=== PATIENT | female | born 1995 | race Hispanic/Latino ===

== ENCOUNTER 2017-12-19 05:27 | Emergency (ER) | payer SELFPAY ==
[~2017-12-19] VITALS: Ht 157.5 cm; Wt 57.4 kg
[~2017-12-19 05:27] MED LIST: CEPHALEXIN500 MG PO; IBUPROFEN600 MG PO; PRENATAL1 TA1
[2017-12-19 06:30] LABS: HEMATOCRIT 45.1 % (37.0-47.0); HEMOGLOBIN 14.7 g/dl (12.0-16.0); IMMATURE GRANULOCYTES 0.3 % (0.0-1.0); MEAN CELL VOLUME 89.8 fL CALC (80.0-100.0); MEAN CORPUSCULAR HGB 29.3 pG CALC (26.0-32.0); MEAN CORPUSCULAR HGB CONC 32.6 g/L CALC (32.0-36.0); NEUT# 5.17 thou/uL (2.00-7.15); RED BLOOD COUNT 5.02 mill/uL (4.20-5.60); RED CELL DISTRI WIDTH 12.7 % (11.5-15.5); URINE BILIRUBIN - DIPSTICK NEGATIVE (NEGATIVE); URINE BLOOD DIPSTICK NEGATIVE (NEGATIVE); URINE COLOR YELLOW; URINE GLUCOSE - DIPSTICK NEGATIVE (NEGATIVE); URINE KETONE NEGATIVE (NEGATIVE); URINE NITRITE - DIPSTICK NEGATIVE (Negative); URINE PH 7.5 (4.5-8.0); URINE PROTEIN - DIPSTICK NEGATIVE (NEG-TRACE); URINE UROBILINOGEN - DIPSTICK 0.2 E.U./dL (0.2)
[2017-12-19 06:34] LABS: URINE CLARITY SL CLOUDY; URINE LEUK ESTERASE SMALL (NEGATIVE)
[2017-12-19 06:45] LABS: ALKALINE PHOSPHATASE 105 u/l (38-126); BILIRUBIN, TOTAL 0.6 mg/dL (0.0-1.4); BUN 13 mg/dL (7-17); BUN/CREATININE RATIO 23 (12-20 (CALC)); CARBON DIOXIDE 25 mmol/l (22-30); CHLORIDE 101 mmol/l (95-108); CREATININE 0.6 mg/dL (0.5-1.0); GFR > 60 ML/MIN (>=60 (CALC)); GFR FOR AFR.AMER. > 60 ML/MIN (>=60 (CALC)); POTASSIUM 4.8 mmol/l (3.5-5.1); SGOT/AST 21 u/l (14-36); SGPT/ALT 33 u/l (9-52)
[2017-12-19 06:49] LABS: URINE BACTERIA MODERATE hpf; URINE MUCUS FEW hpf (NONE-FEW); URINE SQUAMOUS EPITHELIAL CELL FEW EPI/hpf (0-FEW)
[2017-12-19 06:52] LABS: ANION GAP 22 (6-22 (CALC)); SODIUM 143 mmol/l (137-146); TOTAL PROTEIN 8.8 g/dL (6.3-8.2)
[2017-12-19 06:53] LABS: ALBUMIN 5.1 g/dL (3.2-5.0)
[2017-12-19 07:17] LABS: TSH, 3RD GENERATION 0.67 uIU/mL (0.47 - 4.68)
[2017-12-19] MEDS ORDERED: BACTRIM DS1 TAB PO (08:12)
[2017-12-19] MEDS ORDERED: TORADOL PO (08:12)
[2017-12-19 09:00] VITALS: BP 120/68
== END 2017-12-19 09:10 | disposition home or self-care (01) | DRG 103 ==
LOC: ED 05:27
PROVIDERS: Family Medicine
DX: R51 Headache (principal); N39.0 Urinary tract infection, site not specified

== ENCOUNTER 2021-01-11 12:33 | Emergency (ER) | payer OTHER ==
[~2021-01-11] VITALS: Ht 157.5 cm; Wt 55.0 kg
[~2021-01-11 12:33] MED LIST changes: +BACTRIM DS1 TAB PO; +TORADOL PO
[2021-01-11] MEDS ORDERED: BIRTH CONTROL (12:55)
[2021-01-11 13:30] LABS: HEMOGLOBIN 14.2 g/dl (12.0-16.0); IMMATURE GRANULOCYTES 0.1 % (0.0-5.0); MEAN CELL VOLUME 91.9 fL CALC (80.0-100.0); MEAN CORPUSCULAR HGB 31.1 pG CALC (26.0-32.0); MEAN CORPUSCULAR HGB CONC 33.8 g/dL CAL (32.0-36.0); NEUT# 4.67 thou/uL (2.00-7.15); RED BLOOD COUNT 4.57 mill/uL (4.20-5.60); RED CELL DISTRI WIDTH 11.8 % (11.5-15.5)
[2021-01-11 13:53] LABS: ANION GAP 15 (6-22 (CALC)); BUN 11 mg/dL (7-17); BUN/CREATININE RATIO 19 (12-20 (CALC)); CARBON DIOXIDE 24 mmol/l (22-30); CHLORIDE 103 mmol/l (95-108); CREATININE 0.6 mg/dL (0.5-1.0); GFR > 60 ML/MIN (>=60 (CALC)); GFR FOR AFR.AMER. > 60 ML/MIN (>=60 (CALC)); POTASSIUM 3.8 mmol/l (3.5-5.1); SGOT/AST 26 u/l (14-36); SODIUM 138 mmol/l (137-146)
[2021-01-11 13:54] LABS: ALBUMIN 4.7 g/dL (3.2-5.0); ALKALINE PHOSPHATASE 60 u/l (38-126); BILIRUBIN, TOTAL 0.5 mg/dL (0.0-1.4); TOTAL PROTEIN 8.3 g/dL (6.3-8.2)
[2021-01-11 15:31] VITALS: BP 116/61
== END 2021-01-11 15:39 | disposition home or self-care (01) ==
LOC: ED 12:33
PROVIDERS: Family Medicine
DX: G43.909 Migraine, unspecified, not intractable, without status migrainosus (principal)

== ENCOUNTER 2022-08-08 20:43 | Emergency (ER) | payer OTHER ==
[~2022-08-08] VITALS: Ht 160 cm; Wt 67.6 kg
[~2022-08-08 20:43] MED LIST changes: +BIRTH CONTROL
[2022-08-08] MEDS ORDERED: AMOXICILLIN500 MG PO (23:08)
[2022-08-08] MEDS ORDERED: CLARITIN10 M2 PO (23:08)
[2022-08-08 23:33] VITALS: BP 120/78
== END 2022-08-08 23:33 | disposition home or self-care (01) ==
LOC: ED 20:43
DX: J02.9 Acute pharyngitis, unspecified (principal); Z20.822 Contact with and (suspected) exposure to COVID-19

== ENCOUNTER 2023-01-19 13:14 | Emergency (ER) | payer SELFPAY ==
[~2023-01-19] VITALS: Ht 160 cm; Wt 63.5 kg
[~2023-01-19 13:14] MED LIST changes: +AMOXICILLIN500 MG PO; +CLARITIN10 M2 PO
[2023-01-19 13:20] VITALS: BP 137/92
[2023-01-19 13:30] VITALS: BP 127/82
[2023-01-19 14:00] VITALS: BP 118/82
[2023-01-19] MEDS ORDERED: FLOXIN OTIC0.3 % OT (14:17)
[2023-01-19 14:23] VITALS: BP 118/82
== END 2023-01-19 14:28 | disposition home or self-care (01) | DRG 156 ==
LOC: ED 13:14
DX: H60.91 Unspecified otitis externa, right ear (principal)